=== PATIENT | female | born 1990 | race Caucasian/White ===

== ENCOUNTER 2021-01-27 06:39 | Inpatient (IN) | payer BC, OTHER ==
[~2021-01-27] VITALS: Ht 165.1 cm; Wt 72.0 kg
[2021-01-27] MEDS ORDERED: PRENATAL TABLE1 EAC2 PO (09:43)
[2021-01-27] MEDS ORDERED: FISH OIL 1,2001 EAC7 PO (09:43)
[2021-01-27] MEDS ORDERED: VITAMIN D5000 UNIT PO (09:44)
[2021-01-27] MEDS ORDERED: FAMO20 (09:44)
[2021-01-27 09:45] LABS: BASOPHILS ABSOLUTE AUTO 0.06 K/mm3 (0.00-0.23); BASOPHILS PERCENT AUTO 1 % (0-2); EOSINOPHILS ABSOLUTE AUTO 0.05 K/mm3 (0.00-0.68); EOSINOPHILS PERCENT AUTO 0 % (0-6); Hematocrit 36.3 % (33.0-51.0); Hemoglobin 12.3 g/dL (11.5-16.0); IMMATURE GRAN ABSOLUTE AUTO 0.08 K/mm3 (0.00-0.10); IMMATURE GRAN PERCENT AUTO 1 % (0-1); LYMPHOCYTES ABSOLUTE AUTO 1.59 K/mm3 (0.84-5.20); LYMPHOCYTES PERCENT AUTO 13 % (21-46); MONOCYTES ABSOLUTE AUTO 0.86 K/mm3 (0.16-1.47); MONOCYTES PERCENT AUTO 7 % (4-13); Mean Corpuscular HGB 30.4 pg (26.0-34.0); Mean Corpuscular HGB Conc 33.9 g/dL (31.5-36.5); Mean Corpuscular Volume 90 fL (80-100); Mean Platelet Volume 10.8 fL (9.1-12.4); NEUTROPHILS PERCENT AUTO 78 % (41-73); Platelet Count 191 K/mm3 (150-400); RDW Coefficient Variation 12.9 % (11.7-14.2); RDW Standard Deviation 42.7 fL (35.1-46.3); Red Blood Cell Count 4.05 M/mm3 (3.80-5.20); White Blood Cell Count 12.04 K/mm3 (4.00-11.30)
--- NOTE | 2021-01-27 21:20 | NUR ---
LEFT LEG STILL WEAK AMBULATED TO BATHROOM - TO TOILET A LITTLE UNSTABLE BEDBATH ON TOILET THEN ROLLED BACK TO BED PT TO CALL IF WANTS TO USE RESTROOM NOT TO GET UP BY SELF; PT VERBALIZED UNDERSTANDING CALL LIGHT ON BED
--- NOTE | 2021-01-28 00:35 | NUR ---
REPORT TO AT & LT RN'S
[2021-01-28 09:57] LABS: BASOPHILS ABSOLUTE AUTO 0.09 K/mm3 (0.00-0.23); BASOPHILS PERCENT AUTO 1 % (0-2); EOSINOPHILS PERCENT AUTO 1 % (0-6); Hematocrit 32.9 % (33.0-51.0); Hemoglobin 11.1 g/dL (11.5-16.0); IMMATURE GRAN ABSOLUTE AUTO 0.15 K/mm3 (0.00-0.10); IMMATURE GRAN PERCENT AUTO 1 % (0-1); LYMPHOCYTES ABSOLUTE AUTO 2.57 K/mm3 (0.84-5.20); LYMPHOCYTES PERCENT AUTO 13 % (21-46); MONOCYTES ABSOLUTE AUTO 1.51 K/mm3 (0.16-1.47); MONOCYTES PERCENT AUTO 8 % (4-13); Mean Corpuscular HGB 31.1 pg (26.0-34.0); Mean Corpuscular HGB Conc 33.7 g/dL (31.5-36.5); Mean Corpuscular Volume 92 fL (80-100); Mean Platelet Volume 10.8 fL (9.1-12.4); NEUTROPHILS ABSOLUTE AUTO 14.88 K/mm3 (1.96-9.15); NEUTROPHILS PERCENT AUTO 77 % (41-73); Platelet Count 148 K/mm3 (150-400); RDW Coefficient Variation 13.2 % (11.7-14.2); Red Blood Cell Count 3.57 M/mm3 (3.80-5.20)
--- NOTE | 2021-01-28 20:06 | NUR ---
DISCHARGED HOME IN CAR WITH , FOLLOW UP APPOINTMENT FOR 01/31/21 AT 1000.
== END 2021-01-28 19:50 | disposition home or self-care (01) | DRG 807 ==
LOC: OBS 06:39 → BC 09:28
PROVIDERS: ADMIT Family Medicine
PROC: 10E0XZZ Delivery of Products of Conception, External Approach (ICD-10-PCS; principal; 2021-01-27)
PROC: 10907ZC Drainage of Amniotic Fluid, Therapeutic from Products of Conception, Via Natural or Artificial Opening (ICD-10-PCS; 2021-01-27)
PROC: 0HQ9XZZ Repair Perineum Skin, External Approach (ICD-10-PCS; 2021-01-27)
PROC: 3E0R3BZ Introduction of Anesthetic Agent into Spinal Canal, Percutaneous Approach (ICD-10-PCS; 2021-01-27)
PROC: 00HU33Z Insertion of Infusion Device into Spinal Canal, Percutaneous Approach (ICD-10-PCS; 2021-01-27)
DX: O48.0 Post-term pregnancy (principal); Z37.0 Single live birth; Z3A.41 41 weeks gestation of pregnancy; O70.0 First degree perineal laceration during delivery; O77.0 Labor and delivery complicated by meconium in amniotic fluid; Z79.899 Other long term (current) drug therapy
CPT/HCPCS: 36415; 51702; 59025; 76815; 85025; 86850; 86900; 86901; A9270; J1885; J2001; J2210; J2590; J3010; J7120

== ENCOUNTER → 2021-03-10 | Outpatient (CLI) | payer BC, OTHER ==
[~2021-03-10] MED LIST: FAMO20; FISH OIL 1,2001 EAC7 PO; PRENATAL TABLE1 EAC2 PO; VITAMIN D5000 UNIT PO
[2021-03-11 14:10] LABS: HPV 16 Negative (Negative); HPV 18 Negative (Negative); HPV OTHER HR TYPES Negative (Negative)
== END | disposition home or self-care (01) ==
LOC: LAB SHORT 16:24 → LAB 16:24
PROVIDERS: Family Medicine
DX: Z12.4 Encounter for screening for malignant neoplasm of cervix (principal)
CPT/HCPCS: 87624; G0123

== ENCOUNTER 2024-07-03 10:26 | Inpatient (IN) | payer BC, OTHER ==
[2024-07-03] VITALS (26 sets, daily range): BP systolic 97–161; BP diastolic 54–95
[~2024-07-03] VITALS: Ht 165.1 cm; Wt 68.0 kg
[2024-07-03] MEDS ORDERED: Lactated Ringer's 1,000 ML IV ONE (10:43)
[2024-07-03] MEDS ORDERED: OXYTOCIN/RINGER'S LACTATE 500 ML IV ONE (10:43)
[2024-07-03] MEDS ORDERED: Methylergonovine Maleate 0.2MG / ML 1ML Amp IM PRN ×3 (11:00→14:35)
[2024-07-03] MEDS ORDERED: Carboprost Tromethamine 250 MCG/ML 1ML Amp IM PRN ×3 (11:00→14:35)
[2024-07-03] MEDS ORDERED: Misoprostol 200 MCG Tab BC PRN ×3 (11:00→11:10)
[2024-07-03] MEDS ORDERED: Ondansetron HCl 2 MG / ML 2ML Vial IV PRN ×3 (11:00→11:10)
[2024-07-03] MEDS ORDERED: Lactated Ringer's 1,000 ML IV SCH ×5 (11:00→14:35)
[2024-07-03] MEDS ORDERED: FentaNYL Citrate 50 MCG/ML 2 ML Injection IV PRN ×2 (11:00→11:05)
[2024-07-03] MEDS ORDERED: Tranexamic Acid 1,000 MG in NS 100 ML IV SCH ×3 (11:00→11:15)
[2024-07-03] MEDS ORDERED: Lactated Ringer's 1,000 ML IV PRN ×2 (11:00→11:05)
[2024-07-03] MEDS ORDERED: Acetaminophen 500 MG Tab PO PRN ×2 (11:00→11:05)
[2024-07-03] MEDS ORDERED: Misoprostol 200 MCG Tab PR PRN ×4 (11:00→14:30)
[2024-07-03] MEDS ORDERED: Calcium Carbonate 500 MG Tab Chew PO PRN ×2 (11:00→11:05)
[2024-07-03] MEDS ORDERED: FentaNYL 2mcg/ml-Bup 0.1% Epd 250 ML EPI PRN ×2 (11:00→11:05)
[2024-07-03] MEDS ORDERED: ePHEDrine Sulfate 50 MG/ML 1ML Injection XX PRN ×2 (11:00→11:05)
[2024-07-03] MEDS ORDERED: Oxytocin 10 Unit / ML Vial IM PRN ×3 (11:00→11:10)
[2024-07-03] MEDS ORDERED: OXYTOCIN/RINGER'S LACTATE 500 ML IV PRN ×3 (11:00→11:10)
[2024-07-03 11:14] LABS: BASOPHILS ABSOLUTE AUTO 0.06 K/mm3 (0.00-0.23); BASOPHILS PERCENT AUTO 1 % (0-2); EOSINOPHILS ABSOLUTE AUTO 0.04 K/mm3 (0.00-0.68); EOSINOPHILS PERCENT AUTO 0 % (0-6); Hematocrit 38.2 % (33.0-51.0); Hemoglobin 12.8 g/dL (11.5-16.0); IMMATURE GRAN ABSOLUTE AUTO 0.11 K/mm3 (0.00-0.10); IMMATURE GRAN PERCENT AUTO 1 % (0-1); LYMPHOCYTES ABSOLUTE AUTO 2.37 K/mm3 (0.84-5.20); LYMPHOCYTES PERCENT AUTO 19 % (21-46); MONOCYTES ABSOLUTE AUTO 0.93 K/mm3 (0.16-1.47); MONOCYTES PERCENT AUTO 8 % (4-13); Mean Corpuscular HGB 29.6 pg (26.0-34.0); Mean Corpuscular HGB Conc 33.5 g/dL (31.5-36.5); Mean Corpuscular Volume 88 fL (80-100); Mean Platelet Volume 11.6 fL (9.1-12.4); NEUTROPHILS PERCENT AUTO 72 % (41-73); Platelet Count 202 K/mm3 (150-400); RDW Coefficient Variation 13.8 % (11.7-14.2); RDW Standard Deviation 44.6 fL (35.1-46.3); Red Blood Cell Count 4.32 M/mm3 (3.80-5.20); White Blood Cell Count 12.41 K/mm3 (4.00-11.30)
[2024-07-03] MEDS ORDERED: Calcium Carbon500 MG PO (11:15)
[2024-07-03] MEDS ORDERED: FentaNYL Citrate 50 MCG/ML 2 ML Injection ONE (11:56)
[2024-07-03] MEDS ORDERED: Lidocaine 2%-Epineph 1:200000 20 ML SDV ONE (12:24)
[2024-07-03] MEDS ORDERED: Docusate Sodium 100 MG Cap PO PRN (14:25)
[2024-07-03] MEDS ORDERED: Ibuprofen 400 MG Tab PO PRN (14:30)
[2024-07-03] MEDS ORDERED: FLU VACC TS2024-25(6MOS UP)/PF 45 MCG/0.5 ML SYRINGE IM SCH (14:30)
[2024-07-03] MEDS ORDERED: Naproxen 500 MG Tab PO PRN (14:30)
[2024-07-03] MEDS ORDERED: Witch Hazel/Glycerin PADS TOP PRN (14:30)
[2024-07-03] MEDS ORDERED: OxyCODONE 5 mg/Acetamin 325 mg TABLET PO PRN (14:30)
[2024-07-03] MEDS ORDERED: Misoprostol 100 MCG Tab PO PRN (14:35)
[2024-07-03] MEDS ORDERED: Acetaminophen 325 MG TABLET PO PRN (14:35)
[2024-07-03] MEDS ORDERED: Benzocaine/Benzethon Topical Anesthetic Spray 78GM TOP PRN (14:40)
[2024-07-03] MEDS ORDERED: Methylergonovine Maleate 0.2MG / ML 1ML Amp XX ONE (17:09)
[2024-07-03] MEDS ORDERED: Ketorolac Tromethamine 30mg Vial IV SCH (18:00)
--- NOTE | 2024-07-03 18:23 | NUR ---
PT'S IS TURNING THE LIGHTS OFF IN THE ROOM AND PT IS GETTING READY TO REST.
[2024-07-04 01:15] VITALS: BP 99/56
[2024-07-04 01:16] VITALS: BP 95/54
[2024-07-04 04:58] VITALS: BP 107/65
[2024-07-04 06:07] LABS: BASOPHILS ABSOLUTE AUTO 0.05 K/mm3 (0.00-0.23); BASOPHILS PERCENT AUTO 0 % (0-2); EOSINOPHILS ABSOLUTE AUTO 0.06 K/mm3 (0.00-0.68); EOSINOPHILS PERCENT AUTO 0 % (0-6); Hematocrit 32.8 % (33.0-51.0); Hemoglobin 10.8 g/dL (11.5-16.0); IMMATURE GRAN ABSOLUTE AUTO 0.11 K/mm3 (0.00-0.10); IMMATURE GRAN PERCENT AUTO 1 % (0-1); LYMPHOCYTES ABSOLUTE AUTO 2.38 K/mm3 (0.84-5.20); LYMPHOCYTES PERCENT AUTO 15 % (21-46); MONOCYTES ABSOLUTE AUTO 1.36 K/mm3 (0.16-1.47); MONOCYTES PERCENT AUTO 9 % (4-13); Mean Corpuscular HGB 29.6 pg (26.0-34.0); Mean Corpuscular HGB Conc 32.9 g/dL (31.5-36.5); Mean Corpuscular Volume 90 fL (80-100); Mean Platelet Volume 10.1 fL (9.1-12.4); NEUTROPHILS PERCENT AUTO 75 % (41-73); Platelet Count 182 K/mm3 (150-400); RDW Coefficient Variation 13.6 % (11.7-14.2); RDW Standard Deviation 45.1 fL (35.1-46.3); Red Blood Cell Count 3.65 M/mm3 (3.80-5.20); White Blood Cell Count 15.66 K/mm3 (4.00-11.30)
[2024-07-04] MEDS ORDERED: HYDROCODONE-AC1 EA19 PO (08:10)
[2024-07-04] MEDS ORDERED: IBUP800 PO (08:10)
[2024-07-04] MEDS ORDERED: Prenatal Vit/FE Fumarate/FA 1 Tab PO SCH (09:00)
[2024-07-04] MEDS ORDERED: Lanolin Cream TOP SCH (09:20)
[2024-07-04 09:27] VITALS: BP 119/56
[2024-07-04 12:17] VITALS: BP 121/63
[2024-07-04 16:02] VITALS: BP 126/80
--- NOTE | 2024-07-04 16:15 | NUR ---
No acute changes this shift. Pt reviewed printed d/c instructions and declines additional teaching by RN, questions or concerns. Verbalized understanding of follow up with MD and [facility]. ID bands matched w/nb. Pt d/c'd home ambulatory to care of .
== END 2024-07-04 16:16 | disposition home or self-care (01) | DRG 807 ==
LOC: OBS 10:26 → BC 10:28 → OBS 10:43 → BC 10:44 → OBS 10:44 → BC 11:01 → OBS 11:01 → BC 11:08
PROVIDERS: ADMIT Family Medicine
PROC: 10E0XZZ Delivery of Products of Conception, External Approach (ICD-10-PCS; principal; 2024-07-03)
PROC: 10907ZC Drainage of Amniotic Fluid, Therapeutic from Products of Conception, Via Natural or Artificial Opening (ICD-10-PCS; 2024-07-03)
PROC: 00HU33Z Insertion of Infusion Device into Spinal Canal, Percutaneous Approach (ICD-10-PCS; 2024-07-03)
PROC: 3E0R3BZ Introduction of Anesthetic Agent into Spinal Canal, Percutaneous Approach (ICD-10-PCS; 2024-07-03)
DX: O48.0 Post-term pregnancy (principal); Z37.0 Single live birth; Z3A.40 40 weeks gestation of pregnancy; O77.0 Labor and delivery complicated by meconium in amniotic fluid; Z79.899 Other long term (current) drug therapy
CPT/HCPCS: 36415; 51702; 59025; 85025; 86850; 86900; 86901; 99214; A9270; J1885; J2210; J2405; J2590; J3010; J7120